=== PATIENT | female | born 1960 | race Caucasian/White ===

== ENCOUNTER → 2016-02-26 | Outpatient (CLI) | payer BC, OTHER ==
[~2016-02-26] MED LIST: GADOBUTROL 10 ML VIAL IVP ONE
--- NOTE | 2016-02-27 09:00 | MR ---
MRI Right Foot Without and With Contrast History: Diabetes with foot ulcer. Chronic ulcer fifth toe. History of prior surgery. Technique: MRI was performed of the right foot using a 3 Cristy MRI system. Sagittal, coronal, and axi al imaging was obtained with standard imaging sequences. Images were obtained pre- and post intraveno us contrast, 10 mL Gadavist. Findings: There is bone marrow edema and periosteal edema with enhancement in the proximal phalanx of the fifth toe and surrounding soft tissue edema and enhancement. This would suggest cellulitis and o steomyelitis of the proximal phalanx. No evidence for joint effusion at the fifth metatarsophalangeal joint. There is metal susceptibility artifact from hardware fixation at the base of the fifth metata rsal. There is old fracture with nonunion and degenerative change at the base of the second, third, a nd fourth metatarsals. Degenerative change is seen at the cuneiform metatarsal articulation with suba rticular sclerosis, cystic change, and osteophytosis. Mild degenerative change is also seen in the fi rst metatarsophalangeal joint with slight joint effusion. Impression: 1. Findings compatible with cellulitis and osteomyelitis of the proximal phalanx fifth toe. 2. 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 Evidence of prior fix ation of the fifth metatarsal. Results called to Dr. Kalyn Simeon on February 27, 2016 at 0855 hours.
== END ==
LOC: FIMAGING 15:22
PROVIDERS: ATTEND Internal Medicine Infectious Disease
DX: E11.621 Type 2 diabetes mellitus with foot ulcer (principal); M19.071 Primary osteoarthritis, right ankle and foot
CPT/HCPCS: A9585

== ENCOUNTER 2016-03-08 05:36 | Day surgery (SDC) | payer BC, OTHER ==
[2016-03-08] MEDS ORDERED: CEFAZOLIN 2 GM/DEXTROSE/100 ML BAG IV ONE (06:15)
--- NOTE | 2016-03-08 06:20 | CPEKG ---
Heart Rate: 88 RR Interval: 682 P-R Interval: 140 QRSD Interval: 86 QT Interval: 372 QTC Interval: 450 P Gilbert: 1 QRS Gilbert: -4 T Wave Gilbert: 32 EKG Severity - NORMAL ECG - EKG Impression: SINUS RHYTHM Electronically Signed By: Rusty Shah 08-Mar-2016 17:37:56
[2016-03-08] MEDS ORDERED: HYDROCORTISONE 100 MG/2 ML VIAL IV ONE (07:00)
[2016-03-08] MEDS ORDERED: ceFAZolin 2 GM/DEXTROSE 100 ML IV ONE (07:00)
[2016-03-08] MEDS ORDERED: BUPIVACAINE 0.5% 30 ML SDV ONE (07:00)
[2016-03-08] MEDS ORDERED: MIDAZOLAM 2 MG/2 ML VIAL ONE (07:11)
[2016-03-08] MEDS ORDERED: fentaNYL 100 MCG/2 ML INJ ONE (07:15)
[2016-03-08] MEDS ORDERED: PROPOFOL 200 MG/20 ML VIAL ONE (07:16)
[2016-03-08] MEDS ORDERED: VANCOMYCIN HCL/NORMAL SALINE 250 ML IV ONE (08:00)
[2016-03-08] MEDS ORDERED: DEXAMETHASONE 4 MG/ML VIAL ONE (08:01)
[2016-03-08] MEDS ORDERED: ONDANSETRON 4 MG/2 ML VIAL ONE (08:02)
[2016-03-08] MEDS ORDERED: ALBUTEROL 3 ML DEYVIAL ONE (08:40)
--- NOTE | 2016-03-08 09:23 | GOP ---
[f rep st] OPERATIVE REPORT DATE OF OPERATION: 03/08/2016 SURGEON: Clover Lopez MD TAILER IN: Adriana Chapa, IBETH ANESTHESIA: General. ANESTHESIOLOGIST: Terence Patton MD PREOPERATIVE DIAGNOSIS: Osteomyelitis, right 5th toe. POSTOPERATIVE DIAGNOSIS: Osteomyelitis, right 5th toe. PROCEDURE PERFORMED: Amputation, right 5th toe and metatarsal head. FINDINGS: No unusual findings. SPECIMENS: Microbiology and pathology. ESTIMATED BLOOD LOSS: 5 cc. INDICATIONS: The patient is a 55-year-old woman who developed a wound to the inside of her 5th toe. MRI was obtained, which showed osteomyelitis. DESCRIPTION OF PROCEDURE: The patient was brought into the operating room, placed supine on the tabl e, and general anesthesia was administered. Her right foot was prepped and draped in the usual steri le fashion. I infiltrated the area with 10 cc of 0.5% Marcaine. I made a circular incision around t he toe, and created this linearly down the lateral side of the foot. I dissected the subcutaneous ti ssues with electrocautery. I used a periosteal elevator to elevate the tissues away from the bone. I used the microsagittal saw to amputate the 5th toe; this was submitted to Pathology. I took a seco nd sample and submitted this to microbiology I continued my dissection to include the metatarsal head and, again, elevated the tissue and amputated the metatarsal head. The proximal area was inked purp le. Hemostasis was achieved. The deep layer was closed with 2-0 Vicryl. Skin closed with 2-0 nylon . Silver impregnated Mepilex dressing was applied. She was awakened in the operating room, extubate d, transferred to PACU in stable condition. /[id number]/MODL
[2016-03-08] MEDS ORDERED: SUMAtriptan 50 MG TAB PO ONE (12:30)
== END 2016-03-08 13:00 | disposition home or self-care (01) ==
LOC: FSGY 05:36
PROVIDERS: ATTEND Surgery
PROC: 0Y6M0ZF Detachment at Right Foot, Partial 5th Ray, Open Approach (ICD-10-PCS; principal; 2016-03-08 07:15)
DX: M86.171 Other acute osteomyelitis, right ankle and foot (principal); L97.501 Non-pressure chronic ulcer of other part of unspecified foot limited to breakdown of skin; L03.031 Cellulitis of right toe; E11.610 Type 2 diabetes mellitus with diabetic neuropathic arthropathy; J44.9 Chronic obstructive pulmonary disease, unspecified; I10 Essential (primary) hypertension; K21.9 Gastro-esophageal reflux disease without esophagitis; Z87.891 Personal history of nicotine dependence; Z86.73 Personal history of transient ischemic attack (TIA), and cerebral infarction without residual deficits
CPT/HCPCS: J0690; J1100; J2250; J2405; J2704; J3010

== ENCOUNTER 2016-03-11 16:26 | Inpatient (IN) | payer BC, OTHER ==
[2016-03-11] MEDS ORDERED: ACETAMINOPHEN 325 MG TAB PO PRN (16:29)
[2016-03-11] MEDS ORDERED: diphenhydrAMINE 25 MG CAP PO PRN (16:29)
[2016-03-11] MEDS ORDERED: ONDANSETRON 4 MG/2 ML VIAL IVP PRN (16:29)
[2016-03-11] MEDS ORDERED: ONDANSETRON DISINTEGRATING 4 MG TAB PO PRN (16:29)
[2016-03-11] MEDS ORDERED: D50W 25 GM/50 ML SYR IVP PRN ×2 (16:38→19:14)
--- NOTE | 2016-03-11 17:15 | GHP ---
[f rep st] HISTORY AND PHYSICAL DATE OF ADMISSION: 03/11/2016 REASON FOR ADMISSION: Right fifth toe amputation with cellulitis. HISTORY OF PRESENT ILLNESS: The patient is a 55-year-old woman who presented to our office with a chronic right fifth toe wound. She had an MRI which showed evidence of osteomyelitis of the proximal phalanx of the fifth toe. She was taken to the operating room by Dr. Lopez on 03/08/ for amputation of the right fifth toe and distal metatarsal. Pathology and microbiology are still pending. She presented to the office today with worsening redness, swelling and warmth at the site of the amputation. She denies any purulent drainage from the wound. She reports increased tenderness to palpation of the area. Her daughter reports that her temperature is 1 degree higher than her baseline and her oxygen saturations are about 88% on room air. She normally is about 90% on room air. The patient and her family are very concerned about worsening infection and desire treatment with IV antibiotic. PAST MEDICAL HISTORY: Type 2 diabetes, COPD on chronic immunosuppression, arthritis, GERD, hypertension, history of TIA. PAST SURGICAL HISTORY: Right fifth toe amputation, appendectomy, bilateral fifth metatarsal repair, hysterectomy, right knee surgery, tarsal tunnel release , left ulnar nerve relocation, cataract surgery. MEDICATIONS: Advair, Lyrica, metformin, morphine, oxycodone, prednisone, Prozac , triamterene and baby aspirin. ALLERGIES: Penicillin causes rash. SOCIAL HISTORY: She denies tobacco, alcohol or recreational drug use. She is a former smoker and quit 15 years ago. Her daughter is a SURVEILLANCE ANALYST and is her primary caregiver. FAMILY HISTORY: Mother with stroke, otherwise, noncontributory to wound. REVIEW OF SYSTEMS: Ten-point review of systems negative aside from the HPI. PHYSICAL EXAMINATION: GENERAL: Pleasant, well-developed, well-nourished woman in no acute distress, accompanied by daughter, cushingoid features. HEENT: Normocephalic, atraumatic. No hearing deficits. Pupils equal and round. No scleral icterus. Mucous membranes moist. NECK: Tracheal midline. LUNGS: No increased work of breathing. CARDIOVASCULAR: No peripheral edema. SKIN: Warm and dry. The right fifth toe incision is clean and dry. There is surrounding erythema to the midfoot. This was marked with a marking pen. The area is tender to palpation, is warm to the touch. No drainage from the surgical incision, no purulence. MUSCULOSKELETAL: Nonambulatory at this time, in wheelchair. PSYCH: Mood and affect normal. IMPRESSION AND PLAN: The patient is a 55-year-old woman who is status post right fifth toe amputation who presents with cellulitis. Given her comorbidities, we will admit to the hospital for IV antibiotics and observation. We will consult the hospitalist to evaluate for management of her comorbidities. Unlikely that she will need surgical revision at this time. We will continue to follow through her hospital stay. She will have a regular diet as we do not anticipate surgical intervention at this time. I have also notified her infectious disease doctor, Dr. Kalyn Simeon, of the admission and she recommends IV vancomycin. This will be dosed by pharmacy. The patient was additionally seen by Dr. Angelito Farley who agreed with the above impression and plan. Attending addendum - Patient seen and examined with PA. Agree with above. operative site has some cellulitis and is tender. Given above patient comorbidities will plan for admit , observation along with IM and ID consult. Anticipate that patient will resolve cellulitis with gentle elevation and IV antibiotics. /[id number]/MODL MTDD
[2016-03-11] MEDS: VANCOMYCIN 1.25 GM in D5W 250 ML IV SCH (18:35)
--- NOTE | 2016-03-11 20:45 | GCON ---
[f rep st] CONSULTATION MEDICINE CONSULTATION DATE OF CONSULTATION: 03/11/2016 CHIEF COMPLAINT: We were asked by the Surgery Service to consult on this patient who was admitted for right toe cellulitis after recent amputation with a history of a diabetes, COPD, hypertension, and chronic pain. HISTORY OF PRESENT ILLNESS: The patient is a 55-year-old female with history of [id number] type 2 diabetes, COPD, hypertension, and chronic pain, who was directly admitted to the hospital from her surgeon's outpatient clinic due to concern for right 5th toe postop cellulitis. She was previously managed for a chronic wound on her 5th toe and she underwent amputation of the right 5th toe after an MRI revealed evidence of osteomyelitis of the proximal phalanx. Her amputation was performed by Dr. Lopez on March 08. She returned to clinic today complaining of focal redness and swelling at the amputation site. She denies fevers or chills. She has had no purulent drainage. Her foot is somewhat tender, though she is able to bear weight. She denies chest pain, shortness of breath, abdominal pain, nausea, vomiting, diarrhea, or urinary symptoms. Due to concern for cellulitis, she was directly admitted to the hospital by her surgeon for IV antibiotics, ID consultation, and further management. PAST MEDICAL HISTORY: 1. Type 2 diabetes. 2. COPD. 3. Arthritis. 4. GERD. 5. Hypertension. 6. History of TIA. PAST SURGICAL HISTORY: 1. Right 5th toe amputation March 08, 2016. 2. History of appendectomy. 3. Bilateral 5th metatarsal repair. 4. Hysterectomy. 5. Right knee surgery. 6. Carpal tunnel release. 7. Left ulnar nerve relocation. 8. Cataract surgery. MEDICATIONS: Please see Diet TV for completed, updated outpatient medication list. ALLERGIES: Penicillin which causes a rash. FAMILY HISTORY: Her mother had a stroke. SOCIAL HISTORY: The patient lives independently. She is a former smoker. She denies current tobacco use, and also denies alcohol or drug use. Her daughter is her primary caregiver. REVIEW OF SYSTEMS: A 10-point review of systems was performed and was negative except as per HPI. OBJECTIVE: VITAL SIGNS: Temperature is 36.5, blood pressure 132/82, heart rate 74, respiratory rate 14, she is 91% on room air. GENERAL: The patient is awake, alert, oriented, in no acute distress. HEENT: Head is atraumatic, normocephalic. Pupils equal, round and reactive to light. Extraocular muscles are intact. Oropharynx is clear. Mucous membranes are moist. NECK: Supple. There is no JVD. HEART: Regular rate and rhythm without murmur. LUNGS: Clear auscultation bilaterally. ABDOMEN: Soft, nontender. Normoactive bowel tones. EXTREMITIES: Her right lower extremity has focal erythema extending from her 5th right toe amputation site proximally to the midfoot, and this is localized to the dorsal aspect of her right foot. Extremities are otherwise warm, well perfused. There is no lymphangitic streaking. NEUROLOGIC: Exam is grossly nonfocal. LABORATORY DATA: A CBC, basic metabolic panel are ordered and are pending. ASSESSMENT AND PLAN: The patient is a 55-year-old female with a history of hypertension, diabetes, and chronic obstructive pulmonary disease, who is admitted to the hospital for right foot cellulitis 4 days postoperative from amputation. 1. Right foot cellulitis s/p 5th toe amputation for osteomyelitis POD #3. This is primarily managed by her general surgery team. She is admitted to the hospital and started on IV vancomycin. I will go ahead and draw blood cultures and check a CBC and basic metabolic panel tonight. Infectious Disease has been consulted. 2. Type 2 diabetes. The patient takes metformin in the outpatient setting. Her blood sugar on arrival was 103 and her sugars have ranged from 70s to 90s over the past couple of months per chart review. While we are awaiting laboratory data, including her current renal function, we will hold her metformin for now and provide dose-adjusted insulin. 3. Hypertension. The patient was relatively normotensive on arrival. It does not look like she is currently taking an outpatient antihypertensive, though her medication reconciliation is not yet completed. Will need to recheck this in the morning. 4. Chronic obstructive pulmonary disease with chronic continuous steroid use. She has no evidence of acute exacerbation. Again, her medication reconciliation is not completed, but will plan to continue her outpatient inhalers as well as her current outpatient prednisone dose once her medication reconciliation is done. 5. Chronic pain. Will continue the patient's Lyrica and outpatient pain medications. 6. Deep venous thrombosis prophylaxis. Lovenox. CODE STATUS: The patient is full code. DISPOSITION: Inpatient. /[id number]/MODL MTDD
[2016-03-11 21:08] LABS: % IMMATURE GRANULYOCYTES 1.1 % (0.0-1.1); ADD DIFF? NO; ADD MORPH? NO; ADD SCAN? NO; ATYPICAL LYMPHOCYTE FLAG 0 (0-99); FRAGMENT RBC FLAG 0 (0-99); HEMATOCRIT 40.4 % (38.0-47.0); HEMOGLOBIN 13.3 g/dL (12.6-16.3); LEFT SHIFT FLG 40 (0-99); LIPEMIA HEMOLYSIS FLAG 80 (0-99); MEAN CELL HEMOGLOBIN 29.6 pg (27.9-34.1); MEAN CELL HEMOGLOBIN CONCENTR. 32.9 g/dL (32.4-36.7); MEAN CELL VOLUME 89.8 fL (81.5-99.8); MEAN PLATELET VOLUME 10.3 fL (8.7-11.7); PLATELET CLUMPS FLAG 0 (0-99); PLATELET COUNT 253 10^3/uL (150-400); RED CELL DISTRIBUTION WIDTH 13.9 % (11.5-15.2)
[2016-03-11 21:16] LABS: ANION GAP 12 mEq/L (8-16); CALCIUM 9.2 mg/dL (8.5-10.4); CARBON DIOXIDE 27 mEq/l (22-31); CHLORIDE 95 mEq/L (97-110); CREATININE 0.6 mg/dL (0.6-1.0); GLOMERULAR FILTRATION RATE > 60; GLUCOSE 275 mg/dL (70-100); POTASSIUM 4.6 mEq/L (3.5-5.2); SODIUM 134 mEq/L (134-144)
[2016-03-11] MEDS: morphINE SR 60 MG TAB PO SCH (22:31)
[2016-03-11] MEDS: PREGABALIN 75 MG CAP PO SCH (22:33)
[2016-03-11] MEDS: ALBUTEROL 60 PUFFS/8 GM MDI IH SCH (23:47)
[2016-03-12] MEDS: FLUoxetine 20 MG CAP PO SCH ×2 (01:04→22:25)
[2016-03-12] MEDS: INSULIN LISPRO 100 UNIT/ML SC SCH ×5 (01:07→22:24)
[2016-03-12 05:42] LABS: % IMMATURE GRANULYOCYTES 1.6 % (0.0-1.1); ABSOLUTE IMMATURE GRANULOCYTES 0.15 10^3/uL (0.00-0.10); ADD DIFF? NO; ADD MORPH? NO; ADD SCAN? NO; ATYPICAL LYMPHOCYTE FLAG 0 (0-99); FRAGMENT RBC FLAG 0 (0-99); HEMATOCRIT 43.5 % (38.0-47.0); HEMOGLOBIN 13.9 g/dL (12.6-16.3); LEFT SHIFT FLG 20 (0-99); LIPEMIA HEMOLYSIS FLAG 80 (0-99); MEAN CELL HEMOGLOBIN 28.8 pg (27.9-34.1); MEAN CELL VOLUME 90.1 fL (81.5-99.8); MEAN PLATELET VOLUME 10.2 fL (8.7-11.7); PLATELET CLUMPS FLAG 0 (0-99); PLATELET COUNT 256 10^3/uL (150-400); RED BLOOD CELL COUNT 4.83 10^6/uL (4.18-5.33); RED CELL DISTRIBUTION WIDTH 14.2 % (11.5-15.2)
[2016-03-12 06:17] LABS: ANION GAP 13 mEq/L (8-16); CALCIUM 9.4 mg/dL (8.5-10.4); CARBON DIOXIDE 22 mEq/l (22-31); CHLORIDE 103 mEq/L (97-110); CREATININE 0.6 mg/dL (0.6-1.0); GLOMERULAR FILTRATION RATE > 60; GLUCOSE 143 mg/dL (70-100); POTASSIUM 4.5 mEq/L (3.5-5.2); SODIUM 138 mEq/L (134-144)
[2016-03-12] MEDS: VANCOMYCIN 1.25 GM in D5W 250 ML IV SCH ×2 (06:31→18:30)
[2016-03-12] MEDS ORDERED: INSULIN LISPRO 100 UNIT/ML SC SCH (08:00)
[2016-03-12] MEDS: ENOXAPARIN 40 MG/0.4 ML SYR SC SCH (08:21)
[2016-03-12] MEDS: PREGABALIN 75 MG CAP PO SCH ×2 (08:22→22:25)
[2016-03-12] MEDS: ASPIRIN EC 81 MG TAB PO SCH (08:22)
[2016-03-12] MEDS: TRIAMTERENE/HCTZ 37.5/25 1 EACH TAB PO SCH (08:22)
[2016-03-12] MEDS: morphINE SR 60 MG TAB PO SCH ×2 (08:25→22:25)
--- NOTE | 2016-03-12 08:45 | SOAPPROG ---
SOAP Progress Note Assessment/Plan: Assessment: 55yo F POD#4 s/p R 5th toe amputation for chronic wound and osteomyelitis Path pending Erythema improved after 1 dose of vanco IV vancomycin. ID to see Appreciate hospitalist management of comorbidities WBAT S: feeling well. no complaints O: laying in bed, comfortable, NAD No increased WOB No peripheral edema R 5th toe amputation site CDI, some swelling associated with likely underlying hematoma. Erythema receded from marked line (marked yesterday). Nontender to palpation Objective: Vital Signs Temp Pulse Resp BP Pulse Ox 36.7 C 71 18 113/68 2 L 03/12/16 07:34 03/12/16 07:34 03/12/16 07:34 03/12/16 08:22 03/12/16 07:34 Laboratory Results 03/12/16 05:35 03/12/16 05:35
[2016-03-12] MEDS: FLUTICASONE/SALMETER 500/50MCG DISKUS IH SCH ×2 (08:46→22:12)
[2016-03-12] MEDS: ALBUTEROL 60 PUFFS/8 GM MDI IH SCH ×2 (08:50→22:11)
[2016-03-12] MEDS ORDERED: SALMETEROL IH SCH (09:00)
[2016-03-12] MEDS ORDERED: FLUTICASONE IH SCH (09:00)
[2016-03-12] MEDS ORDERED: SUMAtriptan 50 MG TAB PO ONE (13:13)
--- NOTE | 2016-03-12 13:22 | PCMIDPN ---
Assessment/Plan: #Cellulitis s/p R 5th toe amp 03/08/2015. Remote h/o + cx for enterococcus from wound cx on this toe only S to vancomycin. Doubt this is the pathogen associated with cellulitis. Cultures from amputation are only showing mixed cutaneous darlene. --continue vancomycin another day, consider transition to PO Keflex/doxy tomorrow --adjusted dose of vancomycin 1.25gm IV q12 okay Microbiology 03/11 blood cultures (2): Pending OR cultures as above Subjective: feeling well, no f/c, no pain (due to neuropathy) Objective: Vital Signs Temp Pulse Resp BP Pulse Ox 36.7 C 80 18 113/68 91 L 03/12/16 07:34 03/12/16 08:51 03/12/16 08:51 03/12/16 08:22 03/12/16 08:51 Laboratory Results 03/12/16 05:35 03/12/16 05:35 - Physical Exam General Appearance: alert, no apparent distress, other (Cushanoid) Respiratory: No accessory muscle use Extremities: erythema (Surgical site with sutures that are scabbed w/ dry blood. Erythema noted ronaldo-wound, still w/i margins of markings w/ recession. Mild swelling lateral side of R foot, no fluctuance ) Skin: No rash Neuro/Psych: alert, normal mood/affect, oriented x 3 - Time Spent With Patient Time Spent with Patient: greater than 25 minutes Time Spent with Patient: Greater than 25 minutes spent on this patients care, greater than 50% of time spent counseling, educating, and coordinating care regarding the above mentioned plan. ICD10 Worksheet Patient Problems: Problems Problem Status Diagnosed Osteomyelitis Acute
[2016-03-12] MEDS: predniSONE 20 MG TAB PO SCH (13:42)
--- NOTE | 2016-03-12 14:47 | WOCRNPDOC ---
WOCRN Advanced Assessment Note - Skin Integrity Problem, Advanced Assess Right Fifth Toe Surgical Wound/Incision Dressing Type: Gauze Dressing Description: Intact Closure Description: Sutures Exudate Amount: Scant Exudate Color: Brown Exudate Characteristic(s): Bloody, Dried Integumentary Issue Intervention: Dressing Changed Ronaldo Wound Tissue: Erythema (marked by physician), Swollen Ronaldo Wound Swelling: Mild Wound Bed Color: Brown Wound Bed Constitution: Scab Site Odor: None Site Measurement - Head-to-Toe Length X Width X Depth (cm): [id number] Skin Integrity Problem Comment: Surgical wound/amputation site w/ intact sutures noted. Site is presently scabbed w/ dry, bloody exudate. Erythema noted ronaldo-wound, still w/in margins of markings and receding. Mild swelling noted across lateral side of R foot, no fluctuance palpated. Orders written for dressing to protect site and keep it dry.
[2016-03-12] MEDS: NYSTATIN POWDER 15 GM BTL TP SCH ×2 (16:36→22:48)
--- NOTE | 2016-03-12 16:44 | HOSPPROG ---
Hospitalist Progress Note Assessment/Plan: # Acute osteomyelitis- status post amputation- postoperative day 4. MRI foot( personally reviewed and interpreted) shows osteomyelitis - continue IV antibiotics - surgery following # acute right foot cellulitis- clinically markedly improved - continue current antibiotics # diabetes mellitus- blood sugars 142-307- - continue sliding scale insulin # COPD- clinically stable oxygen saturations 90% on room air - continue home meds # prophylaxis Lovenox # diet diabetic # disposition greater than 2 midnights as requiring IV antibiotics and pain medications for postoperative care I have discussed the case with nursing we will encourage ambulation Subjective: no pain at surgical site Objective: Vital Signs Temp Pulse Resp BP Pulse Ox 36.9 C 81 20 107/69 96 03/12/16 16:00 03/12/16 16:00 03/12/16 16:00 03/12/16 16:00 03/12/16 16:00 Laboratory Results 03/12/16 05:35 03/12/16 05:35 - Physical Exam Constitutional: chronically ill appearing Eyes: anicteric sclera Ears, Nose, Mouth, Throat: moist mucous membranes Cardiovascular: regular rate and rhythym Respiratory: no respiratory distress, No expiratory wheeze Gastrointestinal: normoactive bowel sounds, soft, non-tender abdomen Genitourinary: no bladder fullness Skin: warm Musculoskeletal: No asymmetric calves Neurologic: AAOx3 Psychiatric: interacting appropriately, not anxious Lymph, Heme, Immunologic: no cervical LAD ICD10 Worksheet Patient Problems: Problems Problem Status Diagnosed Osteomyelitis Acute - ICD10 Problem Qualifiers (1) Osteomyelitis
[2016-03-12] MEDS: SUMAtriptan 50 MG TAB PO PRN (16:48)
[2016-03-12] MEDS ORDERED: VANCOMYCIN 1.5 GM in D5W 250 ML IV SCH (19:00)
[2016-03-12] MEDS ORDERED: FLUOXETINE HCL 80 MG PO SCH (21:00)
[2016-03-13] MEDS: VANCOMYCIN 1.25 GM in D5W 250 ML IV SCH ×2 (06:38→19:11)
[2016-03-13] MEDS: INSULIN LISPRO 100 UNIT/ML SC SCH ×4 (07:38→22:24)
--- NOTE | 2016-03-13 08:57 | PCMIDPN ---
Assessment/Plan: #Cellulitis s/p R 5th toe amp 03/08/2015. Remote h/o + cx for enterococcus from wound cx on this toe only S to vancomycin. Doubt this is the pathogen associated with cellulitis. Cultures from amputation are only showing mixed cutaneous darlene. slow clinical improvement with erythema still immediately surrounding incision with associated tenderness, surgical team queries if underlying hematoma --continue vancomycin 1.25gm IV q12, check trough and labs at 1800 today --another day of IV antibiotics, likely DC --elevate RLE Microbiology 03/11 blood cultures (2): No growth OR cultures as above Subjective: Patient notes some pain on her lateral right foot. No diarrhea. Did not sleep well last night Objective: Vital Signs Temp Pulse Resp BP Pulse Ox 36.9 C 76 14 113/75 96 03/13/16 07:30 03/13/16 07:30 03/13/16 07:30 03/13/16 07:30 03/13/16 07:30 Laboratory Results 03/12/16 05:35 03/12/16 05:35 - Physical Exam General Appearance: alert, no apparent distress, other (Cushanoid) Respiratory: No accessory muscle use Extremities: erythema (Surgical site with sutures that are scabbed w/ dry blood. Erythema noted primarily ronaldo-wound, further recession compared to yesterday. Mild swelling around wound, no fluctuance), No pedal edema Peripheral Pulses: 1+: dorsalis-pedis (R), dorsalis-pedis (L) Skin: No rash Neuro/Psych: alert, normal mood/affect, oriented x 3 - Line/s PIV Lines: other (R forearm), No drainage, No erythema ICD10 Worksheet Patient Problems: Problems Problem Status Diagnosed Osteomyelitis Acute
[2016-03-13] MEDS: ASPIRIN EC 81 MG TAB PO SCH (09:27)
[2016-03-13] MEDS: TRIAMTERENE/HCTZ 37.5/25 1 EACH TAB PO SCH (09:27)
[2016-03-13] MEDS: morphINE SR 60 MG TAB PO SCH ×2 (09:27→22:23)
[2016-03-13] MEDS: ENOXAPARIN 40 MG/0.4 ML SYR SC SCH (09:27)
[2016-03-13] MEDS: PREGABALIN 75 MG CAP PO SCH ×2 (09:27→22:23)
--- NOTE | 2016-03-13 10:10 | SOAPPROG ---
SOAP Progress Note Assessment/Plan: Assessment: 55yo F POD#5 s/p R 5th toe amputation for chronic wound and osteomyelitis Path pending Erythema significantly improved IV vancomycin. Another day per ID Appreciate hospitalist management of comorbidities WBAT S: feeling well. no complaints this morning. walked yesterday O: laying in bed, comfortable, NAD No increased WOB No peripheral edema R 5th toe amputation site CDI, minimal swelling. Tender around surgical incision. Erythema limited to around incision site Objective: Vital Signs Temp Pulse Resp BP Pulse Ox 36.9 C 76 14 113/75 96 03/13/16 07:30 03/13/16 07:30 03/13/16 07:30 03/13/16 09:27 03/13/16 07:30 Laboratory Results 03/12/16 05:35 03/12/16 05:35 03/12/16 03/13/16 03/14/16 05:59 05:59 05:59 Intake Total 250 Balance 250 ICD10 Worksheet Patient Problems: Problems Problem Status Diagnosed Osteomyelitis Acute
[2016-03-13] MEDS: ALBUTEROL 60 PUFFS/8 GM MDI IH SCH ×2 (10:19→21:57)
[2016-03-13] MEDS: FLUTICASONE/SALMETER 500/50MCG DISKUS IH SCH ×2 (10:20→21:59)
[2016-03-13] MEDS: NYSTATIN POWDER 15 GM BTL TP SCH ×4 (11:25→22:39)
--- NOTE | 2016-03-13 13:43 | HOSPPROG ---
Hospitalist Progress Note Assessment/Plan: # Acute osteomyelitis- status post amputation- postoperative day 5 MRI foot (personally reviewed and interpreted) showed osteomyelitis- BCX - NGTD - continue IV antibiotics - surgery following # acute right foot cellulitis- clinically improved - continue current antibiotics # diabetes mellitus- blood sugars 83-281- taking normal p.o. - continue sliding scale insulin - can resume metformin as an outpatient # COPD- clinically stable oxygen saturations 91% on room air - continue home meds - on chronic prednisone # prophylaxis Lovenox # diet diabetic # disposition greater than 2 midnights as requiring IV antibiotics and pain medications for postoperative care I have discussed the case with infectious disease will continue with 1 additional day of IV antibiotics Subjective: and did not rest well - appetite is normal Objective: Vital Signs Temp Pulse Resp BP Pulse Ox 36.9 C 76 14 113/75 96 03/13/16 07:30 03/13/16 07:30 03/13/16 07:30 03/13/16 09:27 03/13/16 07:30 Laboratory Results 03/12/16 05:35 03/12/16 05:35 03/12/16 03/13/16 03/14/16 05:59 05:59 05:59 Intake Total 250 Balance 250 - Physical Exam Constitutional: obese Eyes: anicteric sclera Ears, Nose, Mouth, Throat: moist mucous membranes Cardiovascular: regular rate and rhythym Respiratory: no rales or rhonchi, expiratory wheeze Gastrointestinal: normoactive bowel sounds, soft, non-tender abdomen Genitourinary: no bladder fullness Skin: warm, normal color, other ( erythema around wound improved) Musculoskeletal: No asymmetric calves Neurologic: AAOx3 Psychiatric: interacting appropriately, not anxious Lymph, Heme, Immunologic: no cervical LAD ICD10 Worksheet Patient Problems: Problems Problem Status Diagnosed Osteomyelitis Acute - ICD10 Problem Qualifiers (1) Osteomyelitis
[2016-03-13] MEDS: predniSONE 20 MG TAB PO SCH (13:57)
[2016-03-13 18:49] LABS: ALANINE AMINOTRANSFERASE 58 IU/L (9-52); ALBUMIN 3.7 g/dL (3.5-5.0); ALKALINE PHOSPHATASE 91 IU/L (38-126); ANION GAP 11 mEq/L (8-16); ASPARTATE AMINOTRANSFERASE 37 IU/L (14-46); BILIRUBIN,TOTAL 0.5 mg/dL (0.1-1.4); C-REACTIVE PROTEIN 12.5 mg/L (<10.0); CALCIUM 9.8 mg/dL (8.5-10.4); CARBON DIOXIDE 31 mEq/l (22-31); CHLORIDE 96 mEq/L (97-110); CREATININE 0.6 mg/dL (0.6-1.0); GLOMERULAR FILTRATION RATE > 60; GLUCOSE 171 mg/dL (70-100); POTASSIUM 4.1 mEq/L (3.5-5.2); SODIUM 138 mEq/L (134-144); TOTAL PROTEIN 6.2 g/dL (6.3-8.2)
[2016-03-13] MEDS: FLUoxetine 20 MG CAP PO SCH (22:23)
[2016-03-14] MEDS: VANCOMYCIN 1.25 GM in D5W 250 ML IV SCH (06:20)
[2016-03-14 07:54] VITALS: BP 135/81; TEMP 98.4
[2016-03-14] MEDS: TRIAMTERENE/HCTZ 37.5/25 1 EACH TAB PO SCH (08:49)
[2016-03-14] MEDS: ASPIRIN EC 81 MG TAB PO SCH (08:49)
[2016-03-14] MEDS: ENOXAPARIN 40 MG/0.4 ML SYR SC SCH (08:49)
[2016-03-14] MEDS: PREGABALIN 75 MG CAP PO SCH (08:50)
[2016-03-14] MEDS: morphINE SR 60 MG TAB PO SCH (08:50)
[2016-03-14] MEDS: NYSTATIN POWDER 15 GM BTL TP SCH ×2 (08:51→15:29)
[2016-03-14] MEDS: INSULIN LISPRO 100 UNIT/ML SC SCH ×2 (09:38→12:41)
--- NOTE | 2016-03-14 10:02 | PCMIDPN ---
Assessment/Plan: #Cellulitis s/p R 5th toe amp 03/08/2015. Remote h/o + cx for enterococcus from wound cx on this toe only S to vancomycin. Doubt this is the pathogen associated with cellulitis. Cultures from amputation still show no specific pathogen. Significant improvement in erythema, some ciara erythema laterally remains. --dc vancomycin --dc okay from ID standpoint --Rx Keflex 500mg TID, doxycycline 100mg PO BID, I sent Rx to Florinda at [facility] and they will bring to her in hospital room Microbiology 03/11 blood cultures (2): No growth OR cultures as above vanco T 15, creatinine 0.6 Subjective: Patient feeling well, no complaints Objective: Vital Signs Temp Pulse Resp BP Pulse Ox 36.9 C 72 16 135/81 H 94 03/14/16 07:50 03/14/16 07:50 03/14/16 07:50 03/14/16 07:50 03/14/16 07:50 Laboratory Results 03/12/16 05:35 03/13/16 18:25 03/13/16 03/14/16 03/15/16 05:59 05:59 05:59 Intake Total 250 Balance 250 C-Reactive Protein 12.5 mg/L (<10.0) H 03/13/16 18:25 - Physical Exam General Appearance: alert, no apparent distress, obese, other (Cushanoid) EENT: No scleral icterus Respiratory: No accessory muscle use Extremities: erythema (Faint ciara erythema surrounding surgical incision on right lateral foot, sutures in place, crusted with blood. No fluctuance) Skin: No rash Neuro/Psych: alert, normal mood/affect, oriented x 3 - Time Spent With Patient Time Spent with Patient: greater than 25 minutes (Coordination of care with surgery and discharge medicine) Time Spent with Patient: Greater than 25 minutes spent on this patients care, greater than 50% of time spent counseling, educating, and coordinating care regarding the above mentioned plan. ICD10 Worksheet Patient Problems: Problems Problem Status Diagnosed Osteomyelitis Acute
[2016-03-14] MEDS: FLUTICASONE/SALMETER 500/50MCG DISKUS IH SCH (10:12)
[2016-03-14] MEDS: ALBUTEROL 60 PUFFS/8 GM MDI IH SCH (10:12)
[2016-03-14 10:21] VITALS: PULSE 80; RESP 18; O2SAT 92
[2016-03-14] MEDS: SUMAtriptan 50 MG TAB PO PRN (11:28)
--- NOTE | 2016-03-14 12:07 | SOAPPROG ---
SOAP Progress Note Assessment/Plan: Assessment: 55 yo s/p amputation right fifth toe and and metarsal head Admitted for mild cellulitus Continue abx per ID F/U with dr. Lopez or lizzie on 03/21 or 03/22 May shower Light dressing over wound otherwise S: ready to go home O: Mild erythema by sutures Plan: 03/14/16 12:06 03/14/16 12:26 Objective: Vital Signs Temp Pulse Resp BP Pulse Ox 36.9 C 80 18 135/81 H 92 03/14/16 07:50 03/14/16 10:13 03/14/16 10:13 03/14/16 07:50 03/14/16 10:13 Laboratory Results 03/12/16 05:35 03/13/16 18:25 03/13/16 03/14/16 03/15/16 05:59 05:59 05:59 Intake Total 250 Balance 250 ICD10 Worksheet Patient Problems: Problems Problem Status Diagnosed Osteomyelitis Acute
[2016-03-14] MEDS: predniSONE 20 MG TAB PO SCH (13:26)
[2016-03-14] MEDS ORDERED: CEPHALEXIN 500 MG CAP PO SCH (16:00)
[2016-03-14] MEDS ORDERED: DOXYCYCLINE HYCLATE 100 MG CAP/TAB PO SCH (21:00)
== END 2016-03-14 16:58 | disposition home or self-care (01) | DRG 863 ==
LOC: F3N 17:08 → F3E 17:18 → OBSVTOIN 19:36
PROVIDERS: ADMIT Surgery; ATTEND Surgery
DX: T81.4XXA Infection following a procedure, initial encounter (principal); L03.115 Cellulitis of right lower limb; E11.9 Type 2 diabetes mellitus without complications; J44.9 Chronic obstructive pulmonary disease, unspecified; K21.9 Gastro-esophageal reflux disease without esophagitis; I10 Essential (primary) hypertension; Z86.73 Personal history of transient ischemic attack (TIA), and cerebral infarction without residual deficits; Z89.421 Acquired absence of other right toe(s); M19.90 Unspecified osteoarthritis, unspecified site; G89.29 Other chronic pain; Z79.51 Long term (current) use of inhaled steroids; Z79.52 Long term (current) use of systemic steroids
CPT/HCPCS: J1650; J1815; J3370

== ENCOUNTER 2017-05-12 02:37 | Observation (INO) | payer BC, OTHER ==
[2017-05-12] MEDS ORDERED: NS 1,000 ML IV ONE (02:42)
--- NOTE | 2017-05-12 02:46 | EDPHY ---
H & P Time Seen by Provider: 05/12/17 02:45 HPI/ROS: HPI CHIEF COMPLAINT: Shortness of breath, cough, joint pain, muscle aches, flu- like illness HISTORY OF PRESENT ILLNESS: This patient very pleasant 56-year-old female extensive medical history which includes COPD, obstructive sleep apnea, hypertension, diabetes, coronary artery disease, migraines, asthma, GERD, chronic pain, recent right ankle fracture in a splint, who presents emergency room with fever, muscle aches and joint pain, flu-like illness, cough. She denies any chest pain. Denies abdominal pain. Denies urinary symptoms. Does state mild shortness of breath. T-max at [facility] was 102.6. She did receive Tylenol prior to arrival. She does complain of generalized weakness and fatigue as well. Past Medical History: COPD 2L night, MICHAEL, obesity, coronary disease, migraines, asthma, GERD, chronic pain, diabetes, hypertension Past Surgical History: Multiple previous surgeries including hysterectomy, appendectomy, tonsillectomy Social History: Resides at [facility]. Family History: Noncontributory ROS REVIEW OF SYSTEMS: A comprehensive 10 point review of systems is otherwise negative aside from elements mentioned in the history of present illness. Exam Constitutional appears nontoxic, triage nursing summary reviewed, vital signs reviewed, awake/alert. Eyes normal conjunctivae and sclera, EOMI, PERRLA. HENT normal inspection, atraumatic, moist mucus membranes, no epistaxis, neck supple/ no meningismus, no raccoon eyes. Respiratory decreased breath sounds bilaterally, wheezing on the right lung field, no appreciable wheezing on the left lung field Cardiovascular rate normal, regular rhythm, no murmur, no edema, distal pulses normal. Gastrointestinal soft, non-tender, no rebound, no guarding, normal bowel sounds, no distension, no pulsatile mass. Genitourinary no CVA tenderness. Musculoskeletal no midline vertebral tenderness, full range of motion, no calf swelling, no tenderness of extremities, no meningismus, good pulses, neurovascularly intact. Skin pink, warm, & dry, no rash, skin atraumatic. Neurologic awake, alert and oriented x 3, AAOx3, moves all 4 extremities equally, motor intact, sensory intact, CN II-XII intact, normal cerebellar, normal vision, normal speech. Psychiatric normal mood/affect. Heme/Lymph/Immune no lymphadenopathy. Differential Diagnosis: Includes but is not limited to in a particular order pneumonia, viral syndrome, upper respiratory tract infection, influenza, dehydration, electrolyte abnormality, sepsis, bacteremia, pulmonary embolism Medical Decision Making: Plan for this patient IV establishment with blood cultures, lactic acid, check influenza, chest x-ray to rule pneumonia, gentle IV hydration, check blood work , electrolytes, and re-evaluate. Re-evaluation: EKG interpretation by me on record in [employer] system. Impression time of EKG 4:14 a.m., sinus tachycardia rate of [address] elevation no ST depression no significant T-wave abnormalities. 0441: Patient's blood work reviewed. This patient has a positive D-dimer over 4. In the setting of hypoxia, shortness of breath, and a recent right ankle injury in a splint will need to proceed with CT angiogram of the chest to rule out pulmonary embolism. Blood work has been reviewed. Positive D-dimer. Negative troponin. She did receive a DuoNeb breathing treatment this feeling slightly better. 0642AM: CT angiogram of the chest reviewed no evidence of pulmonary embolism. There is bilateral atelectasis present. Due to the patient's hypoxia, wheezing on exam she will be admitted to the hospital for further pulmonary care. She received a DuoNeb breathing treatment here in the emergency room. Additionally I have ordered her 60 mg prednisone. Additionally IV Levaquin for possible COPD exacerbation. Her CT scan did not show evidence of significant PE. Or significant pneumonia. Unclear exactly what caused her fever at [facility] of 102.6 blood cultures have been sent. Plan for this patient should be admitted to the hospital for shortness of breath and wheezing. Hypoxia. 0709AM: Spoke with the patient again. Patient is doing much better than arrival to the emergency room. I discussed about being discharged going home however when we discussed this at length she does not want to go home. She wants to be admitted to the hospital. I will touch base back with the hospitalist service for admission. 0711: Spoke with Dr. Nelson agrees to admit the patient. I did explain that the patient does not feel comfortable going back to [facility]. I did encourage her to go back to [facility]. However she feels more comfortable being admitted. She is currently getting IV Levaquin. Received 60 mg prednisone. Source: Patient, EMS - Medical/Surgical History Hx Asthma: No Hx Chronic Respiratory Disease: No Hx Diabetes: Yes Hx Cardiac Disease: No Hx Renal Disease: No Hx Cirrhosis: No Hx Alcoholism: No Hx HIV/AIDS: No Hx Splenectomy or Spleen Trauma: No Other PMH: htn, dm 2, copd - Social History Smoking Status: Former smoker Constitutional: Initial Vital Signs Temperature (C) 37 C 05/12/17 02:40 Heart Rate 110 H 05/12/17 02:40 Respiratory Rate 20 05/12/17 02:40 Blood Pressure 135/95 H 05/12/17 02:40 O2 Sat (%) 94 05/12/17 02:40 O2 Delivery Mode Room Air O2 (L/minute) 2 Allergies/Adverse Reactions: Penicillins Allergy (Verified 03/14/16 15:37) Anaphylaxis Home Medications: Medication Instructions Recorded Albuterol [Proventil Inhaler HFA 2 puffs IH BID 03/07/16 (*)] Aspirin EC [Aspirin EC 81 mg (*)] 81 mg PO DAILY 03/07/16 FLUTICASONE/SALMETEROL [ADVAIR HFA 2 puffs IH BID 03/07/16 230-21 MCG INHALER] Fluoxetine HCl [Prozac 40 mg] 80 mg PO HS 03/07/16 Metformin HCl [Metformin 1000 mg] 1,000 mg PO BID 03/07/16 Morphine Sulfate [Morphine Sulfate 60 mg PO BID 03/07/16 ER] Pregabalin [Lyrica 75mg (*)] 75 mg PO BID 03/07/16 Triamterene/Hydrochlorothiazid 1 tab PO DAILY 03/07/16 [Triamterene-Hctz 37.5-25 mg Tb] oxyCODONE IR [Oxycodone Ir (*)] 30 mg PO Q6 PRN 03/07/16 predniSONE 20 mg PO DAILY@14 03/07/16 SUMAtriptan [Imitrex 50 MG (*)] 50 mg PO Q2H PRN MDD 100 mg 03/12/16 Cephalexin [Keflex (*)] 500 mg PO TID #0 cap 03/14/16 Doxycycline Hyclate [Vibramycin 100 mg PO BID #0 capsule 03/14/16 100 MG (*)] Medical Decision Making - Data Points Laboratory Results: Laboratory Results 05/12/17 02:50 05/12/17 02:50 03/05/12/17 05/12/17 02:50 02:50 02:50 WBC RBC Hgb Hct MCV MCH MCHC RDW Plt Count MPV Neut % (Auto) Lymph % (Auto) [place] % (Auto) Eos % (Auto) Baso % (Auto) Nucleat RBC Rel Count Absolute Neuts (auto) Absolute Lymphs (auto) Absolute Monos (auto) Absolute Eos (auto) Absolute Basos (auto) Absolute Nucleated RBC Immature Gran % Immature Gran # PT INR APTT D-Dimer Sodium Potassium Chloride Carbon Dioxide Anion Gap BUN Creatinine Estimated GFR Glucose Calcium Magnesium Total Bilirubin Conjugated Bilirubin Unconjugated Bilirubin AST ALT Alkaline Phosphatase Creatine Kinase CK-MB (CK-2) Fraction Troponin I NT-Pro-B Natriuret Pep 216 pg/mL H pg/mL (0-125) Total Protein Albumin Lipase Urine Color Pending Urine Appearance Pending Urine pH Pending Ur Specific [place] Pending Urine Protein Pending Urine Ketones Pending Urine Blood Pending Urine Nitrate Pending Urine Bilirubin Pending Urine Urobilinogen Pending Ur Leukocyte Esterase Pending Urine Glucose Pending Nasal Influenza A PCR NEGATIVE FOR FLU A (NEGATIVE) Nasal Influenza B PCR NEGATIVE FOR FLU B (NEGATIVE) 05/12/17 05/12/17 05/12/17 02:50 02:50 02:50 WBC 10.64 10^3/uL H 10^3/uL (3.80-9.50) RBC 4.63 10^6/uL 10^6/uL (4.18-5.33) Hgb 10.7 g/dL L g/dL (12.6-16.3) Hct 36.7 % L % (38.0-47.0) MCV 79.3 fL L fL (81.5-99.8) MCH 23.1 pg L pg (27.9-34.1) MCHC 29.2 g/dL L g/dL (32.4-36.7) RDW 18.3 % H % (11.5-15.2) Plt Count 447 10^3/uL H 10^3/uL (150-400) MPV 9.8 fL fL (8.7-11.7) Neut % (Auto) 63.0 % % (39.3-74.2) Lymph % (Auto) 16.4 % % (15.0-45.0) [place] % (Auto) 12.0 % % (4.5-13.0) Eos % (Auto) 7.3 % % (0.6-7.6) Baso % (Auto) 0.5 % % (0.3-1.7) Nucleat RBC Rel Count 0.3 % H % (0.0-0.2) Absolute Neuts (auto) 6.71 10^3/uL H 10^3/uL (1.70-6.50) Absolute Lymphs (auto) 1.74 10^3/uL 10^3/uL (1.00-3.00) Absolute Monos (auto) 1.28 10^3/uL H 10^3/uL (0.30-0.80) Absolute Eos (auto) 0.78 10^3/uL H 10^3/uL (0.03-0.40) Absolute Basos (auto) 0.05 10^3/uL 10^3/uL (0.02-0.10) Absolute Nucleated RBC 0.03 10^3/uL H 10^3/uL (0-0.01) Immature Gran % 0.8 % % (0.0-1.1) Immature Gran # 0.08 10^3/uL 10^3/uL (0.00-0.10) PT 13.8 SEC SEC (12.0-15.0) INR 1.04 (0.83-1.16) APTT 27.5 SEC SEC (23.0-38.0) D-Dimer 4.04 ug/mLFEU H ug/mLFEU (0.00-0.50) Sodium 141 mEq/L mEq/L (135-145) Potassium 3.7 mEq/L mEq/L (3.5-5.2) Chloride 97 mEq/L mEq/L (97-110) Carbon Dioxide 32 mEq/l H mEq/l (22-31) Anion Gap 12 mEq/L mEq/L (8-16) BUN 26 mg/dL H mg/dL (7-23) Creatinine 0.7 mg/dL mg/dL (0.6-1.0) Estimated GFR > 60 Glucose 140 mg/dL H mg/dL (70-100) Calcium 8.3 mg/dL L mg/dL (8.5-10.4) Magnesium 1.4 mg/dL L mg/dL (1.6-2.3) Total Bilirubin 0.8 mg/dL mg/dL (0.1-1.4) Conjugated Bilirubin 0.4 mg/dL mg/dL (0.0-0.5) Unconjugated Bilirubin 0.4 mg/dL mg/dL (0.0-1.1) AST 27 IU/L IU/L (14-46) ALT 44 IU/L IU/L (9-52) Alkaline Phosphatase 99 IU/L IU/L (38-126) Creatine Kinase 39 IU/L IU/L (0-156) CK-MB (CK-2) Fraction 0.61 ng/mL ng/mL (0.00-3.19) Troponin I < 0.012 ng/mL ng/mL (0.000-0.034) NT-Pro-B Natriuret Pep 217 pg/mL H pg/mL (0-125) Total Protein 5.5 g/dL L g/dL (6.3-8.2) Albumin 3.1 g/dL L g/dL (3.5-5.0) Lipase 47 IU/L IU/L (23-300) Urine Color Urine Appearance Urine pH Ur Specific [place]ila Urine Protein Urine Ketones Urine Blood Urine Nitrate Urine Bilirubin Urine Urobilinogen Ur Leukocyte Esterase Urine Glucose Nasal Influenza A PCR Nasal Influenza B PCR Medications Given: Levofloxacin/Dextrose (Levaquin 750 Mg (Premix)) 150 mls @ 100 mls/hr IV EDNOW ONE PRN Reason: Protocol Stop: 05/12/17 08:09 Last Admin: 05/12/17 06:49 Dose: 150 mls Discontinued Medications Albuterol/Ipratropium (Duoneb) 3 ml IH EDNOW ONE Stop: 05/12/17 02:48 Last Admin: 05/12/17 02:52 Dose: 3 ml Hydromorphone HCl (Dilaudid) 0.5 mg IVP EDNOW ONE Stop: 05/12/17 04:45 Last Admin: 05/12/17 05:28 Dose: 0.5 mg Sodium Chloride (Ns) 1,000 mls @ 0 mls/hr IV EDNOW ONE; Wide Open PRN Reason: Protocol Stop: 05/12/17 02:43 Last Admin: 05/12/17 02:47 Dose: 1,000 mls Magnesium Sulfate (Magnesium Sulf 2 Gm (Premix)) 50 mls @ 50 mls/hr IV EDNOW ONE Stop: 05/12/17 05:01 Last Admin: 05/12/17 04:20 Dose: 50 mls Prednisone (Prednisone) 60 mg PO EDNOW ONE Stop: 05/12/17 06:41 Last Admin: 05/12/17 06:48 Dose: 60 mg Departure - Departure Disposition: [facility] In[facility] Acute Clinical Impression: Bronchitis, COPD exacerbation COPD (chronic obstructive pulmonary disease) Qualifiers: COPD type: unspecified COPD Qualified Code(s): J44.9 - Chronic obstructive pulmonary disease, unspecified Condition: Fair
[2017-05-12] MEDS ORDERED: IPRATROPIUM/ALBUTEROL 3 ML DEYVIAL IH ONE (02:47)
[2017-05-12 03:13] LABS: PLATELET COUNT 447 10^3/uL (150-400)
[2017-05-12 03:22] LABS: INR 1.04 (0.83-1.16); PROTIME(PATIENT) 13.8 SEC (12.0-15.0)
[2017-05-12 03:24] LABS: CREATINE KINASE 39 IU/L (0-156)
[2017-05-12] MEDS ORDERED: MAGNESIUM SULF 2 GM/WATER 50 ML IV ONE (04:02)
[2017-05-12] MEDS ORDERED: IOPAMIDOL (ISOVUE 370) 100 ML BTL IV ONE (04:05)
[2017-05-12] MEDS ORDERED: HYDROmorphONE/DILAUDID 2 MG/ML INJ IVP ONE (04:44)
[2017-05-12] MEDS ORDERED: predniSONE 20 MG TAB PO ONE (06:40)
[2017-05-12] MEDS ORDERED: ALBUTEROL 3 ML DEYVIAL IH PRN (06:41)
[2017-05-12] MEDS ORDERED: ONDANSETRON DISINTEGRATING 4 MG TAB PO PRN (06:41)
[2017-05-12] MEDS ORDERED: ONDANSETRON 4 MG/2 ML VIAL IVP PRN (06:41)
[2017-05-12] MEDS ORDERED: ACETAMINOPHEN 325 MG TAB PO PRN (06:41)
--- NOTE | 2017-05-12 07:06 | PDGENHP ---
History and Physical - Chief Complaint Fever - History of Present Illness 56 yo F w/ COPD, morbid obesity, DM, and chronic pain presents from [facility] with reported fever. Patient is complaining only of fatigue and "not feeling like myself". She recently broke her R ankle and has this in a partial cast. She denies any increased pain to the R ankle. She also denies shortness of breath or chest pain. She is currently on her baseline 2 L/min O2 satting in the mid 90's. She has been afebrile while here. CTPE without clear abnormality ; there is a question of possible, small peripheral PE but doubt this is clinically significant if present. History Information - Allergies/Home Medication List Allergies/Adverse Reactions: Penicillins Allergy (Verified 03/14/16 15:37) Anaphylaxis Home Medications: Albuterol [Proventil Inhaler HFA (*)] 2 puffs IH BID 03/07/16 [Last Taken 07:00] Aspirin EC [Aspirin EC 81 mg (*)] 81 mg PO DAILY 03/07/16 [Last Taken 03/11/16 07:00] FLUTICASONE/SALMETEROL [ADVAIR HFA 230-21 MCG INHALER] 2 puffs IH BID 03/07/16 [ Last Taken 03/11/16 07:00] Fluoxetine HCl [Prozac 40 mg] 80 mg PO HS 03/07/16 [Last Taken 03/10/16 21:00] Metformin HCl [Metformin 1000 mg] 1,000 mg PO BID 03/07/16 [Last Taken 03/11/16 07:00] Morphine Sulfate [Morphine Sulfate ER] 60 mg PO BID 03/07/16 [Last Taken 07:00] Pregabalin [Lyrica 75mg (*)] 75 mg PO BID 03/07/16 [Last Taken 03/11/16 07:00] Triamterene/Hydrochlorothiazid [Triamterene-Hctz 37.5-25 mg Tb] 1 tab PO DAILY 03/07/16 [Last Taken 03/11/16 07:00] oxyCODONE IR [Oxycodone Ir (*)] 30 mg PO Q6 PRN 03/07/16 [Last Taken 03/11/16 16 :00] predniSONE 20 mg PO DAILY@14 03/07/16 [Last Taken 03/11/16 14:30] SUMAtriptan [Imitrex 50 MG (*)] 50 mg PO Q2H PRN MDD 100 mg 03/12/16 [Last Taken Unknown] I have personally reviewed and updated: family history, medical history - Past Medical History COPD, diabetes type 2 Additional medical history: Chronic pain. Morbid obesity - Surgical History Additional surgical history: R ankle surgery for recent fx - Family History Positive for: cancer - Social History Smoking Status: Former smoker Review of Systems Review of Systems: ROS: 10pt was reviewed & negative except for what was stated in HPI & below Physical Exam Physical Exam: Temp Pulse Resp BP Pulse Ox 37 C 94 16 136/95 H 100 05/12/17 02:40 05/12/17 06:00 05/12/17 06:00 05/12/17 06:00 05/12/17 06:00 Constitutional: no apparent distress, obese, other (Cushingoid appearance) Eyes: PERRL, EOMI Ears, Nose, Mouth, Throat: moist mucous membranes, no oral mucosal ulcers Cardiovascular: regular rate and rhythym, no murmur, rub, or gallop Respiratory: no respiratory distress, clear to auscultation Gastrointestinal: normoactive bowel sounds, soft, non-tender abdomen Skin: warm, normal color Musculoskeletal: full muscle strength, other (R foot in partial cast, wrapped) Neurologic: AAOx3, CN II-XII Intact Psychiatric: interacting appropriately, not anxious Lab Data & Imaging Review 05/12/17 02:50 05/12/17 02:50 WBC 10.64 10^3/uL (3.80-9.50) H 05/12/17 02:50 RBC 4.63 10^6/uL (4.18-5.33) 05/12/17 02:50 Hgb 10.7 g/dL (12.6-16.3) L 05/12/17 02:50 Hct 36.7 % (38.0-47.0) L 05/12/17 02:50 MCV 79.3 fL (81.5-99.8) L 05/12/17 02:50 MCH 23.1 pg (27.9-34.1) L 05/12/17 02:50 MCHC 29.2 g/dL (32.4-36.7) L 05/12/17 02:50 RDW 18.3 % (11.5-15.2) H 05/12/17 02:50 Plt Count 447 10^3/uL (150-400) H 05/12/17 02:50 MPV 9.8 fL (8.7-11.7) 05/12/17 02:50 Neut % (Auto) 63.0 % (39.3-74.2) 05/12/17 02:50 Lymph % (Auto) 16.4 % (15.0-45.0) 05/12/17 02:50 [place] % (Auto) 12.0 % (4.5-13.0) 05/12/17 02:50 Eos % (Auto) 7.3 % (0.6-7.6) 05/12/17 02:50 Baso % (Auto) 0.5 % (0.3-1.7) 05/12/17 02:50 Nucleat RBC Rel Count 0.3 % (0.0-0.2) H 05/12/17 02:50 Absolute Neuts (auto) 6.71 10^3/uL (1.70-6.50) H 05/12/17 02:50 Absolute Lymphs (auto) 1.74 10^3/uL (1.00-3.00) 05/12/17 02:50 Absolute Monos (auto) 1.28 10^3/uL (0.30-0.80) H 05/12/17 02:50 Absolute Eos (auto) 0.78 10^3/uL (0.03-0.40) H 05/12/17 02:50 Absolute Basos (auto) 0.05 10^3/uL (0.02-0.10) 05/12/17 02:50 Absolute Nucleated RBC 0.03 10^3/uL (0-0.01) H 05/12/17 02:50 Immature Gran % 0.8 % (0.0-1.1) 05/12/17 02:50 Immature Gran # 0.08 10^3/uL (0.00-0.10) 05/12/17 02:50 PT 13.8 SEC (12.0-15.0) 05/12/17 02:50 INR 1.04 (0.83-1.16) 05/12/17 02:50 APTT 27.5 SEC (23.0-38.0) 05/12/17 02:50 D-Dimer 4.04 ug/mLFEU (0.00-0.50) H 05/12/17 02:50 Sodium 141 mEq/L (135-145) 05/12/17 02:50 Potassium 3.7 mEq/L (3.5-5.2) 05/12/17 02:50 Chloride 97 mEq/L (97-110) 05/12/17 02:50 Carbon Dioxide 32 mEq/l (22-31) H 05/12/17 02:50 Anion Gap 12 mEq/L (8-16) 05/12/17 02:50 BUN 26 mg/dL (7-23) H 05/12/17 02:50 Creatinine 0.7 mg/dL (0.6-1.0) 05/12/17 02:50 Estimated GFR > 60 05/12/17 02:50 Glucose 140 mg/dL (70-100) H 05/12/17 02:50 Calcium 8.3 mg/dL (8.5-10.4) L 05/12/17 02:50 Magnesium 1.4 mg/dL (1.6-2.3) L 05/12/17 02:50 Total Bilirubin 0.8 mg/dL (0.1-1.4) 05/12/17 02:50 Conjugated Bilirubin 0.4 mg/dL (0.0-0.5) 05/12/17 02:50 Unconjugated Bilirubin 0.4 mg/dL (0.0-1.1) 05/12/17 02:50 AST 27 IU/L (14-46) 05/12/17 02:50 ALT 44 IU/L (9-52) 05/12/17 02:50 Alkaline Phosphatase 99 IU/L (38-126) 05/12/17 02:50 Creatine Kinase 39 IU/L (0-156) 05/12/17 02:50 CK-MB (CK-2) Fraction 0.61 ng/mL (0.00-3.19) 05/12/17 02:50 Troponin I < 0.012 ng/mL (0.000-0.034) 03/19/18 02:50 NT-Pro-B Natriuret Pep 216 pg/mL (0-125) H 05/12/17 02:50 Total Protein 5.5 g/dL (6.3-8.2) L 05/12/17 02:50 Albumin 3.1 g/dL (3.5-5.0) L 05/12/17 02:50 Lipase 47 IU/L (23-300) 05/12/17 02:50 Nasal Influenza A PCR NEGATIVE FOR FLU A (NEGATIVE) 05/12/17 02:50 Nasal Influenza B PCR NEGATIVE FOR FLU B (NEGATIVE) 05/12/17 02:50 Imaging Review: CTPE (Prelim): No central PE with possible small volume clot in pertferal LT mid lung, Vascular opacification is fairly good Cardiomegaly Atelectasis bilateral Suspect hepatic steatosis Called to ER @ 0615 hrs Assessment & Plan Assessment: 56 yo F w/ morbid obesity, COPD, DM, and chronic pain presents with fever. Plan: 1. Fever - Unclear etiology; she has been afebrile while here. She has been mildly tachycardic but this is her only SIRS criteria (1/4). She has no clear localizing symptoms but generalized fatigue may be suggestive of viral illness. CTPE negative for pneumonia. Patient is refusing to be discharged back to [facility]. - Blood cultures, respiratory PCR, procalcitonin - S/p levofloxacin in ED, will observe off of further antibiotics 2. COPD - Some mild wheezing reported in ED on arrival, she is clear to auscultation on my exam now w/ O2 sats in the mid 90's on baseline 2 L/min. - Continue home inhalers - Albuterol PRN - She received prednisone in the ED for possible COPD exacerbation, but I am not certain this is necessary. I will not order for now and she can be observed throughout the day. 3. DM - Will order SSI for blood sugar management while inpatient. 4. Morbid obesity - BMI 40 5. Chronic pain - Takes multiple medications as outpatient, need med reconciliation. Diet - Regular Code - Full Ppx - LMWH Dispo - Admit under observation status
[2017-05-12] MEDS ORDERED: OXYCODONE/APAP 5/325 TAB PO ONE (08:12)
[2017-05-12] MEDS ORDERED: ENOXAPARIN 40 MG/0.4 ML SYR SC SCH (09:00)
--- NOTE | 2017-05-12 09:23 | CPEKG ---
Heart Rate: 101 RR Interval: 594 P-R Interval: 152 QRSD Interval: 82 QT Interval: 324 QTC Interval: 420 P [place]: 4 QRS [place]: 0 T Wave [place]: 24 EKG Severity - OTHERWISE NORMAL ECG - EKG Impression: SINUS TACHYCARDIA Electronically Signed By: Morteza Underwood 12-May-2017 21:33:54
[2017-05-12] MEDS: INSULIN LISPRO 100 UNIT/ML SC SCH ×3 (10:56→17:59)
--- NOTE | 2017-05-12 12:38 | ASMTCMCOM ---
CM Note CM Note Notes: Chart reviewed. Met with patient who reports she normally lives in [place] with her , daughter and grandson. She has been at [facility] for 2 weeks for fracture of right tibia. She was admitted via ED with fevers. Workup pending. Disposition likely back to [facility]. Will place referral in allscripts. CM to follow. Date Signed: 05/12/2017 12:37 PM Electronically Signed By:Rin Mccracken RN
[2017-05-12] MEDS ORDERED: IPRATROPIUM/ALBUTEROL 3 ML DEYVIAL IH PRN (13:44)
[2017-05-12] MEDS ORDERED: LISINOPRIL 10 MG TAB PO PRN (13:44)
[2017-05-12] MEDS ORDERED: SUMAtriptan 50 MG TAB PO PRN (13:44)
[2017-05-12] MEDS ORDERED: MELATONIN 3 MG TAB PO PRN (13:44)
[2017-05-12] MEDS ORDERED: ALBUTEROL 60 PUFFS/8 GM MDI IH PRN (13:44)
[2017-05-12] MEDS: Fluticasone/Salmeterol [Advair Hfa 230-21 Mcg Inhaler] 2 PUFFS IH SCH ×2 (14:40→20:51)
[2017-05-12] MEDS: ASPIRIN EC 81 MG TAB PO SCH (14:58)
[2017-05-12] MEDS: PREGABALIN 75 MG CAP PO SCH ×2 (14:58→20:49)
--- NOTE | 2017-05-12 16:00 | HOSPPROG ---
Hospitalist Progress Note Assessment/Plan: patient seen, without resp complaints or CP noted is cast on RLE and recent orthopedic surgery. CT scan shows equivocal very small clot burden 1. b/l LE u/s now 2. no anticoag if u/s neg 3. [facility] neg Objective: Vital Signs Temp Pulse Resp BP Pulse Ox 36.6 C 90 14 132/74 H 93 05/12/17 11:38 05/12/17 11:38 05/12/17 11:38 05/12/17 11:38 05/12/17 11:38 05/11/17 05/12/17 05/13/17 05:59 05:59 05:59 Intake Total 1000 Output Total 600 Balance 400 PT 13.8 SEC (12.0-15.0) 05/12/17 02:50 INR 1.04 (0.83-1.16) 05/12/17 02:50 ICD10 Worksheet Patient Problems: Problems Problem Status Onset Bronchitis Acute COPD (chronic obstructive pulmonary disease) Acute COPD exacerbation Acute Osteomyelitis Acute
--- NOTE | 2017-05-12 16:31 | ASMTLACE ---
LACE Length of stay for Answers: Less than 1 day current admission Comorbidities - select Answers: Chronic pulmonary disease all that apply # of Emergency department Answers: 1-2 visits in the last 6 months Score: 3 Date Signed: 05/12/2017 04:31 PM Electronically Signed By:Rin Mccracken RN
--- NOTE | 2017-05-12 16:52 | ASMTCMCOM ---
CM Note CM Note Notes: Patient has been medically cleared for discharge back to [facility]. Call to Mari at [facility] to request transportation. She called back to state patient will need therapiy evals for reauthorization. Notified MD. Discharge cancelled and therapy evals ordered. CM to follow. Date Signed: 05/12/2017 04:51 PM Electronically Signed By:Rin Mccracken RN
[2017-05-12] MEDS: predniSONE 10 MG TAB PO SCH (17:59)
[2017-05-12] MEDS ORDERED: metFORMIN HCL 500 MG TAB PO SCH (18:00)
[2017-05-12] MEDS: CYCLOBENZAPRINE 10 MG TAB PO PRN (18:03)
--- NOTE | 2017-05-12 19:58 | GDS ---
[f rep st] DISCHARGE SUMMARY DISCHARGE DIAGNOSES: 1. Likely viral syndrome. 2. Chronic pain on continuous narcotics. 3. Recent fibular fracture. 4. Diabetes. 5. Morbid obesity. 6. Chronic obstructive pulmonary disease. Please see admission history and physical by Dr. Chacho Nelson. The patient presented with fever and not feeling like herself and fatigued. She is in a partial cast on her right ankle. She had a CT PE showing equivocal minimal clot burden in the small part of her lung, that being of the left mid lung. Notably, she did not have respiratory complaints, nor did she have an oxygen requirement despite her diagnosis of COPD. The patient had ultrasound of her legs performed. The results are pending at this time. If negative , she will be discharge back to [facility] where she is recuperating from her ankle surgery. If the results are positive, she will be staying the hospital overnight, and initiate systemic anticoagulati on. /[id number]/MODL
[2017-05-12] MEDS: oxyCODONE CR 30 MG TAB PO SCH (20:49)
[2017-05-12] MEDS: FAMOTIDINE 20 MG TAB PO SCH (20:49)
[2017-05-12] MEDS: DULoxetine 30 MG CAP PO SCH (20:49)
[2017-05-13] MEDS: CYCLOBENZAPRINE 10 MG TAB PO PRN ×2 (02:57→18:11)
--- NOTE | 2017-05-13 08:07 | HOSPPROG ---
Hospitalist Progress Note Assessment/Plan: Patient is a 56-year-old female who presented from [facility] with complaints of fever. She is not feeling like herself. She recently broke her ankle and this is in a partial cast. She was discharged yesterday but the discharge was canceled due to needing further evaluation by PT and OT. Today is my 1st encounter with the patient. Chart reviewed. 56 yo F w/ morbid obesity, COPD, DM, and chronic pain presents with fever. * Fever -blood cultures are pending, procalcitonin is 0.84 and respiratory PCR shows no organism detected -she is feeling much better today *COPD - Albuterol PRN -CTA negative for PE * DM - Will order SSI for blood sugar management while inpatient. * Morbid obesity - BMI 40 * Chronic pain -home regimen cont *Plan: dc after PT and OT see her Subjective: Lesvia is feeling better today, cont to be weak. Objective: Vital Signs Temp Pulse Resp BP Pulse Ox 36.9 C 89 16 107/53 L 93 05/13/17 02:56 05/13/17 02:56 05/13/17 02:56 05/13/17 02:56 05/13/17 02:56 05/12/17 05/13/17 05/14/17 05:59 05:59 05:59 Intake Total 2000 Output Total 1750 Balance 250 PT 13.8 SEC (12.0-15.0) 05/12/17 02:50 INR 1.04 (0.83-1.16) 05/12/17 02:50 - Physical Exam Constitutional: not in pain, obese Eyes: PERRL Ears, Nose, Mouth, Throat: hearing normal Cardiovascular: regular rate and rhythym Respiratory: no respiratory distress, reduced air movement Skin: warm Musculoskeletal: generalized weakness Neurologic: AAOx3 Psychiatric: interacting appropriately ICD10 Worksheet Patient Problems: Problems Problem Status Onset Osteomyelitis Acute Bronchitis Acute COPD (chronic obstructive pulmonary disease) Acute COPD exacerbation Acute
--- NOTE | 2017-05-13 08:34 | PDIAF ---
- Diagnosis Diagnosis: fevers Code Status: Full Code - Medication Management Discharge Medications: Medications to Continue on Transfer Albuterol [Proventil Inhaler HFA (*)] 2 puffs IH Q6HRS PRN 03/07/16 [Last Taken 03/11/16 07:00] Aspirin EC [Aspirin EC 81 mg (*)] 81 mg PO DAILY 03/07/16 [Last Taken 03/11/16 07:00] FLUTICASONE/SALMETEROL [ADVAIR HFA 230-21 MCG INHALER] 2 puffs IH BID 03/07/16 [ Last Taken 03/11/16 07:00] Pregabalin [Lyrica 75mg (*)] 75 mg PO BID 03/07/16 [Last Taken 03/11/16 07:00] Triamterene/Hydrochlorothiazid [Triamterene-Hctz 37.5-25 mg Tb] 1 tab PO DAILY 03/07/16 [Last Taken 03/11/16 07:00] oxyCODONE IR [Oxycodone Ir (*)] 30 mg PO Q4HRS PRN 03/07/16 [Last Taken 16:00] SUMAtriptan [Imitrex 50 MG (*)] 100 mg PO DAILY PRN 03/12/16 [Last Taken Unknown ] Cyclobenzaprine [Flexeril 10 MG (*)] 10 mg PO TID PRN 05/12/17 [Last Taken Unknown] DULoxetine [Cymbalta 30 MG (*)] 90 mg PO HS 05/12/17 [Last Taken Unknown] Ipratropium/Albuterol [Duoneb (*)] 3 ml IH Q6HRS PRN 05/12/17 [Last Taken Unknown] Lisinopril [Zestril 10 mg (*)] 10 mg PO DAILY PRN 05/12/17 [Last Taken Unknown] Melatonin [Melatonin 3 MG (*)] 3 mg PO HS PRN 05/12/17 [Last Taken Unknown] Multivitamins [Multivitamin (*)] 1 each PO DAILY 05/12/17 [Last Taken Unknown] Nystatin Powder [Mycostatin Powder] 1 jed TP DAILY 05/12/17 [Last Taken Unknown] Ranitidine HCl [Zantac] 300 mg PO BID 05/12/17 [Last Taken Unknown] oxyCODONE HCL [Oxycontin] 60 mg PO BID 05/12/17 [Last Taken Unknown] predniSONE [Prednisone] 10 mg PO DAILY18 05/12/17 [Last Taken Unknown] Discharge Medications: Refer to the Discharge Home Medication list for PRN reason. - Orders Services needed: Physical Therapy, Occupational Therapy Diet Recommendation: ADA 2000 consistent carb Diet Texture: Regular Texture Diet Additional: HOLD METFORMIN UNTIL TOMORROW EVENING DOSE, ON 05/14/17, SHE USUSALLY TAKES METFORMIN 500 MG BID - Follow Up Care Current Providers and Referrals: NONE *PRIMARY CARE P,. [Primary Care Provider] - As per Instructions
[2017-05-13] MEDS: MULTIVITAMINS 1 EACH TAB PO SCH (08:55)
[2017-05-13] MEDS: PREGABALIN 75 MG CAP PO SCH ×2 (08:55→20:20)
[2017-05-13] MEDS: FAMOTIDINE 20 MG TAB PO SCH ×2 (08:55→20:21)
[2017-05-13] MEDS: ASPIRIN EC 81 MG TAB PO SCH (08:55)
[2017-05-13] MEDS: ENOXAPARIN 40 MG/0.4 ML SYR SC SCH (08:56)
[2017-05-13] MEDS: TRIAMTERENE/HCTZ 37.5/25 1 EACH TAB PO SCH (08:57)
[2017-05-13] MEDS: oxyCODONE CR 30 MG TAB PO SCH ×2 (08:57→20:20)
[2017-05-13] MEDS: INSULIN LISPRO 100 UNIT/ML SC SCH ×3 (09:02→18:13)
[2017-05-13] MEDS: Fluticasone/Salmeterol [Advair Hfa 230-21 Mcg Inhaler] 2 PUFFS IH SCH ×2 (10:54→20:25)
--- NOTE | 2017-05-13 14:51 | GDS ---
[f rep st] DISCHARGE SUMMARY DISCHARGE DIAGNOSIS: 1. Likely upper respiratory viral infection with resolution of her fevers. 2. Chronic obstructive pulmonary disease. 3. Diabetes. 4. Morbid obesity. 5. Chronic pain. BRIEF HISTORY: Briefly, the patient is a 56-year-old female who presented from [facility] with complaints of fever. She was not feeling like herself. She recently broke her ankle and this is in a partial cast. The plan was for her to be discharged yesterday but she needed further evaluation by PT and OT. She will be discharged today. Please see Dr. Purdy's discharge summary on 2017. DISCHARGE CONDITION: Stable. Blood pressure is 131/73, heart rate is 89, respiratory rate is 16, O2 saturation on 2 L are 93%, temperature 36.9 Celsius. MEDICATIONS AT DISCHARGE: Please see the EMR. DISCHARGE INSTRUCTIONS: 1. To hold her metformin for another day and a half. She received contrast during her stay. 2. To further follow up with her primary care provider. 3. If she develops fever, chills, chest pain, or shortness of breath, return to the ER. /[id number]/MODL MTDD
[2017-05-13] MEDS: predniSONE 10 MG TAB PO SCH (18:11)
[2017-05-13] MEDS: NYSTATIN POWDER 15 GM BTL TP SCH (18:14)
[2017-05-13] MEDS: DULoxetine 30 MG CAP PO SCH (20:20)
[2017-05-14] MEDS ORDERED: metFORMIN HCL 500 MG TAB PO SCH (08:00)
[2017-05-14] MEDS: ENOXAPARIN 40 MG/0.4 ML SYR SC SCH (08:52)
[2017-05-14] MEDS: oxyCODONE CR 30 MG TAB PO SCH (08:53)
[2017-05-14] MEDS: MULTIVITAMINS 1 EACH TAB PO SCH (08:53)
[2017-05-14] MEDS: FAMOTIDINE 20 MG TAB PO SCH (08:53)
[2017-05-14] MEDS: TRIAMTERENE/HCTZ 37.5/25 1 EACH TAB PO SCH (08:53)
[2017-05-14] MEDS: ASPIRIN EC 81 MG TAB PO SCH (08:53)
[2017-05-14] MEDS: PREGABALIN 75 MG CAP PO SCH (08:53)
--- NOTE | 2017-05-14 08:54 | HOSPPROG ---
Hospitalist Progress Note Assessment/Plan: Patient is a 56-year-old female who presented from [facility] with complaints of fever. She is not feeling like herself. She recently broke her ankle and this is in a partial cast. She was discharged yesterday but the discharge was canceled due to needing further evaluation by PT and OT. 56 yo F w/ morbid obesity, COPD, DM, and chronic pain presents with fever. * Fever -blood cultures show no growth, procalcitonin is 0.84 and respiratory PCR shows no organism detected *recent ankle surgery -has underlying Charcot foot -therapies recommending SNF *COPD - Albuterol PRN -CTA negative for PE * DM - Will order SSI for blood sugar management while inpatient. * Morbid obesity - BMI 40 * Chronic pain -home regimen cont *Plan: hopefully dc to rehab today Subjective: Lesvia is hopeful to go to rehab today, has no complaints. Objective: Vital Signs Temp Pulse Resp BP Pulse Ox 36.7 C 90 16 143/75 H 93 05/14/17 03:22 05/14/17 03:22 05/14/17 03:22 05/14/17 03:22 05/14/17 03:22 05/13/17 05/14/17 05/15/17 05:59 05:59 05:59 Intake Total 2000 1100 Output Total 1750 900 Balance 250 200 PT 13.8 SEC (12.0-15.0) 05/12/17 02:50 INR 1.04 (0.83-1.16) 05/12/17 02:50 - Physical Exam Constitutional: chronically ill appearing, obese Eyes: PERRL Ears, Nose, Mouth, Throat: hearing normal Cardiovascular: regular rate and rhythym Respiratory: no respiratory distress, reduced air movement Musculoskeletal: generalized weakness Neurologic: AAOx3 Psychiatric: interacting appropriately ICD10 Worksheet Patient Problems: Problems Problem Status Onset Bronchitis Acute COPD (chronic obstructive pulmonary disease) Acute COPD exacerbation Acute Osteomyelitis Acute
[2017-05-14] MEDS: NYSTATIN POWDER 15 GM BTL TP SCH (08:56)
[2017-05-14] MEDS ORDERED: FLUTICASONE/SALMETER 500/50MCG DISKUS IH SCH (09:00)
[2017-05-14] MEDS: INSULIN LISPRO 100 UNIT/ML SC SCH (09:28)
--- NOTE | 2017-05-14 10:50 | PDIAF ---
- Diagnosis Diagnosis: fevers Code Status: Full Code - Medication Management Discharge Medications: Medications to Continue on Transfer Albuterol [Proventil Inhaler HFA (*)] 2 puffs IH Q6HRS PRN 03/07/16 [Last Taken 03/11/16 07:00] Aspirin EC [Aspirin EC 81 mg (*)] 81 mg PO DAILY 03/07/16 [Last Taken 03/11/16 07:00] FLUTICASONE/SALMETEROL [ADVAIR HFA 230-21 MCG INHALER] 2 puffs IH BID 03/07/16 [ Last Taken 03/11/16 07:00] Pregabalin [Lyrica 75mg (*)] 75 mg PO BID 03/07/16 [Last Taken 03/11/16 07:00] Triamterene/Hydrochlorothiazid [Triamterene-Hctz 37.5-25 mg Tb] 1 tab PO DAILY 03/07/16 [Last Taken 03/11/16 07:00] oxyCODONE IR [Oxycodone Ir (*)] 30 mg PO Q4HRS PRN 03/07/16 [Last Taken 16:00] SUMAtriptan [Imitrex 50 MG (*)] 100 mg PO DAILY PRN 03/12/16 [Last Taken Unknown ] Cyclobenzaprine [Flexeril 10 MG (*)] 10 mg PO TID PRN 05/12/17 [Last Taken Unknown] DULoxetine [Cymbalta 30 MG (*)] 90 mg PO HS 05/12/17 [Last Taken Unknown] Ipratropium/Albuterol [Duoneb (*)] 3 ml IH Q6HRS PRN 05/12/17 [Last Taken Unknown] Lisinopril [Zestril 10 mg (*)] 10 mg PO DAILY PRN 05/12/17 [Last Taken Unknown] Melatonin [Melatonin 3 MG (*)] 3 mg PO HS PRN 05/12/17 [Last Taken Unknown] Multivitamins [Multivitamin (*)] 1 each PO DAILY 05/12/17 [Last Taken Unknown] Nystatin Powder [Mycostatin Powder] 1 jed TP DAILY 05/12/17 [Last Taken Unknown] Ranitidine HCl [Zantac] 300 mg PO BID 03/19/18 [Last Taken Unknown] oxyCODONE HCL [Oxycontin] 60 mg PO BID 05/12/17 [Last Taken Unknown] predniSONE [Prednisone] 10 mg PO DAILY18 05/12/17 [Last Taken Unknown] metFORMIN HCL [Metformin HCl] 500 mg PO BID #60 tablet 05/14/17 [Last Taken Unknown] Discharge Medications: Refer to the Discharge Home Medication list for PRN reason. - Orders Services needed: Physical Therapy, Occupational Therapy Diet Recommendation: ADA 2000 consistent carb Diet Texture: Regular Texture Diet - Labs/Radiology BMP Date: 05/16/17 - Follow Up Care Current Providers and Referrals: NONE *PRIMARY CARE P,. [Primary Care Provider] - As per Instructions
--- NOTE | 2017-05-14 10:59 | ASMTCMCOM ---
CM Note CM Note Notes: Pt's BC insurance has given auth. She is ready for DC. Noon pickup with Bran Barker arranged by [facility] . Final orders faxed. Date Signed: 05/14/2017 10:58 AM Electronically Signed By:Светлана Younger LCSW
[2017-05-14 11:47] VITALS: RESP 18
--- NOTE | 2017-05-14 12:11 | ASMTCMCOM ---
CM Note CM Note Notes: Sent PT/OT notes to [facility] per their request this morning. Waited all day for them to receive insurance authorization. [facility] could not admit patient today because they did not receive authorization from insurance. I attempted to call [facility] as well and was never connected to a person who could help me. Patient is rightfully upset. geographic information systems engineer and hospitalist notified. Date Signed: 05/13/2017 04:53 PM Electronically Signed By:María Stevenson RN
[2017-05-14 14:41] VITALS: BP 133/104; PULSE 128; TEMP 98.1; O2SAT 97
--- NOTE | 2017-05-14 15:45 | ASDISCHSUM ---
Discharge Information Plan Status: Medically Cleared to Leave: Discharge Date:05/14/2017 12:32 PM CM D/C Disposition: ADT D/C Disposition:Fdc Facility Projected Discharge Date:05/14/2017 11:00 AM Transportation at D/C: Discharge Delay Reason: Follow-Up Date:05/14/2017 11:00 AM Discharge Slot: Final Diagnosis: Placement Information Referral Type:*Long-Term/SNF Referral ID:[id number] Provider Name:[facility] [place] Address 1:[address] Address 2: City:[place] Selection Factors: State:[place] Patient Contact Information Contact Name:ION Relationship: Address:[address] [facility] Work Phone: [facility] Phone: State/Zip Code:[place] [address] Email: Financial Information Financial Class:HMO and PPO Plans Primary Plan Desc: OUT OF STATE PPO Primary Plan Number:[id number] Secondary Plan Desc:MEDICARE OUTPATIENT Secondary Plan Number:[id number] Assessment Information LACE LACE Length of stay for Answers: Less than 1 day current admission Comorbidities - select Answers: Chronic pulmonary disease all that apply # of Emergency department Answers: 1-2 visits in the last 6 months Score: 3 Date Signed: 05/12/2017 04:31 PM Electronically Signed By:Rin Mccracken RN [facility] CM Progress Note CM Note CM Note Notes: Chart reviewed. Met with patient who reports she normally lives in [place] with her , daughter and grandson. She has been at [facility] for 2 weeks for fracture of right tibia. She was admitted via ED with fevers. Workup pending. Disposition likely back to [facility]. Will place referral in allscripts. CM to follow. Date Signed: 05/12/2017 12:37 PM Electronically Signed By:Rin Mccracken RN [facility] CM Progress Note CM Note CM Note Notes: Patient has been medically cleared for discharge back to [facility]. Call to Mari at [facility] to request transportation. She called back to state patient will need therapiy evals for reauthorization. Notified MD. Discharge cancelled and therapy evals ordered. CM to follow. Date Signed: 05/12/2017 04:51 PM Electronically Signed By:Rin Mccracken RN [facility] Progress Note CM Note CM Note Notes: Sent PT/OT notes to [facility] per their request this morning. Waited all day for them to receive insurance authorization. [facility] could not admit patient today because they did not receive authorization from insurance. I attempted to call [facility] as well and was never connected to a person who could help me. Patient is rightfully upset. loading shovel oiler and hospitalist notified. Date Signed: 05/13/2017 04:53 PM Electronically Signed By:María Stevenson RN [facility] CM Progress Note CM Note CM Note Notes: Pt's BC insurance has given auth. She is ready for DC. Noon pickup with Bran Barker arranged by [facility] . Final orders faxed. Date Signed: 05/14/2017 10:58 AM Electronically Signed By:Светлана Younger LCSW Intervention Information
== END 2017-05-14 12:32 ==
LOC: EDUNIT# → F1N 08:40
PROVIDERS: ADMIT Student in an Organized Health Care Education/Training Program; ATTEND Internal Medicine
DX: R50.9 Fever, unspecified (principal); J44.9 Chronic obstructive pulmonary disease, unspecified; R09.02 Hypoxemia; E86.9 Volume depletion, unspecified; G89.29 Other chronic pain; E66.01 Morbid (severe) obesity due to excess calories; Z68.39 Body mass index [BMI] 39.0-39.9, adult; E11.9 Type 2 diabetes mellitus without complications; S82.90XA Unspecified fracture of unspecified lower leg, initial encounter for closed fracture; I25.10 Atherosclerotic heart disease of native coronary artery without angina pectoris; K21.9 Gastro-esophageal reflux disease without esophagitis; I10 Essential (primary) hypertension; G47.33 Obstructive sleep apnea (adult) (pediatric); G43.909 Migraine, unspecified, not intractable, without status migrainosus; Z79.891 Long term (current) use of opiate analgesic; Z79.84 Long term (current) use of oral hypoglycemic drugs; Z79.51 Long term (current) use of inhaled steroids; Z87.891 Personal history of nicotine dependence; Z88.0 Allergy status to penicillin
CPT/HCPCS: 71045; 71275; 93005; 93970; 96361; 96374; 96375; 97161; 97165; 97530; 97535; 99285; G0378; G8978; G8979; G8987; G8988; G8989; J1170; J1650; J1815; J1956; J3475; J7512; Q9967

== ENCOUNTER → 2018-05-26 | Outpatient (CLI) | payer BC, OTHER | LOC: FIMAGING 15:41 | PROVIDERS: ATTEND Podiatrist Primary Podiatric Medicine | DX: L97.319 Non-pressure chronic ulcer of right ankle with unspecified severity (principal); M87.861 Other osteonecrosis, right tibia; M24.271 Disorder of ligament, right ankle; M19.071 Primary osteoarthritis, right ankle and foot | CPT/HCPCS: 82565-PO; A9585 ==

== ENCOUNTER 2018-07-06 05:46 | Day surgery (SDC) | payer BC, OTHER ==
[2018-07-06] MEDS ORDERED: LR 1,000 ML IV ONE (05:54)
[2018-07-06] MEDS ORDERED: LIDOCAINE 1% 2 ML INJ ID PRN (05:54)
--- NOTE | 2018-07-06 06:54 | PDHPUP ---
History & Physical Update H&P update statement: This history and physical update is based on an assessment of the patient which was completed after admission or registration (within 24 hours), but prior to the surgery/procedure. H&P update: H&P reviewed & patient examined, no change in patient's condition since H&P completed
[2018-07-06] MEDS ORDERED: CLINDAMYCIN 900 MG/DEXTROSE 50 ML IV ONE (06:55)
[2018-07-06] MEDS ORDERED: BACITRACIN 50,000 UNITS/10 ML SYR IRR ONE (06:58)
[2018-07-06] MEDS ORDERED: BUPIVACAINE 0.25% 30 ML SDV ONE (06:58)
[2018-07-06] MEDS ORDERED: BUPIVACAINE/EPI 0.25% 30 ML SDV ONE (06:58)
--- NOTE | 2018-07-06 07:02 | PDANEPAE ---
ANE History of Present Illness 57 year old for I&D right ankle ANE Past Medical History - Cardiovascular History Hx Hypertension: Yes Hx Arrhythmias: No Hx Chest Pain: No Hx Coronary Artery / Peripheral Vascular Disease: No Hx CHF / Valvular Disease: No Hx Palpitations: No - Pulmonary History Hx COPD: Yes Hx Asthma/Reactive Airway Disease: Yes Hx Recent Upper Respiratory Infection: Yes Hx Oxygen in Use at Home: Yes O2 in Use at Home (L/minute): 2.5L/min at night Hx Sleep Apnea: No Sleep Apnea Screening Result - Last Documented: Positive Pulmonary History Comment: Nocturnal hypoxia - Neurologic History Hx Cerebrovascular Accident: Yes Hx Seizures: No Hx Dementia: No Neurologic History Comment: TIA 08/2015 - Endocrine History Hx Diabetes: Yes Endocrine History Comment: DIAB II - Renal History Hx Renal Disorders: No - Liver History Hx Hepatic Disorders: No - Neurological & Psychiatric Hx Hx Neurological and Psychiatric Disorders: Yes Neurological / Psychiatric History Comment: DEPRESSION. peripheral neuropathy - Cancer History Hx Cancer: No - Congenital Disorder History Hx Congenital Disorders: No - GI History Hx Gastrointestinal Disorders: Yes Gastrointestinal History Comment: GERD - Other Health History Other Health History: ARTHRITIS. CHARCOT ARTHROPATHY ANDREIA. FEET. glaucoma. cataract sx. upper dentures - Chronic Pain History Chronic Pain: Yes (KNEES,FEET) - Surgical History Prior Surgeries: APPENDECTOMY. HYSTERECTOMY 1992. R TKA 2008. TONSILLECTOMY. METATARSAL ANDREIA. TARSAL TUNNEL L. WOUND REPAIR L LEG. ULNAR NERVE. broke leg feb 2017. Feb 2018 hardware removal from ankle r/t rejection ANE Review of Systems Review of Systems: - Exercise capacity METS (RN): 3 METS ANE Patient History - Allergies Allergies/Adverse Reactions: Penicillins Allergy (Verified 07/06/18 06:17) Rash - Home Medications Home medications: home medication list seen and reviewed (ICU admission post op from [facility]) Home Medications: Albuterol [Proventil Inhaler HFA (*)] 2 puffs IH BID 03/07/16 [Last Taken 04:00] Aspirin EC [Aspirin EC 81 mg (*)] 81 mg PO DAILY 03/07/16 [Last Taken 02/24/18] FLUTICASONE/SALMETEROL [ADVAIR HFA 230-21 MCG INHALER] 1 puffs IH DAILY [Last Taken 07/05/18 09:00] oxyCODONE IR [Oxycodone Ir (*)] 20 mg PO Q6 PRN 03/07/16 [Last Taken 07/05/18 20 :00] SUMAtriptan [Imitrex 50 MG (*)] 03/12/16 [Last Taken 07/05/18 09:00] DULoxetine [Cymbalta 30 MG (*)] 30 mg PO DAILY 05/12/17 [Last Taken 07/05/18 20: 00] Ipratropium/Albuterol [Duoneb (*)] 05/12/17 [Last Taken 3 Months Ago ~04/08/18] Lisinopril [Zestril 10 mg (*)] 10 mg PO DAILY 05/12/17 [Last Taken 07/05/18 09: 00] Multivitamins [Multivitamin (*)] 1 tab PO DAILY 05/12/17 [Last Taken 2 Months Ago ~05/06/18] Ranitidine HCl [Zantac] 300 mg PO DAILY 05/12/17 [Last Taken 07/05/18 20:00] predniSONE [Prednisone] 20 mg PO DAILY 05/12/17 [Last Taken 07/05/18 09:00] metFORMIN HCL [Metformin HCl] 06/05/18 [Last Taken 07/05/18 20:00] LYRICA 07/06/18 [Last Taken 07/05/18 20:00] - NPO status NPO Since - Liquids (Date): 07/05/18 NPO Since - Liquids (Time): 21:00 NPO Since - Solids (Date): 07/05/18 NPO Since - Solids (Time): 20:00 - Smoking Hx Smoking Status: Former smoker - Family Anes Hx Family Hx Anesthesia Complications: None. ANE Labs/Vital Signs - Vital Signs Blood Pressure: 137/82 Heart Rate: 102 Respiratory Rate: 13 O2 Sat (%): 93 Height: 165.1 cm Weight: 102.058 kg ANE Physical Exam - Airway Neck exam: FROM Mallampati Score: Class 2 Mouth exam: normal dental/mouth exam - Pulmonary Pulmonary: clear to auscultation - Cardiovascular Cardiovascular: regular rate and rhythym - ASA Status ASA Status: III ANE Anesthesia Plan Anesthesia Plan: MAC
[2018-07-06] MEDS ORDERED: PROPOFOL 200 MG/20 ML VIAL ONE (07:25)
[2018-07-06] MEDS ORDERED: fentaNYL 100 MCG/2 ML INJ ONE (07:25)
[2018-07-06] MEDS ORDERED: PROPOFOL/EMULSION 500 MG/50 ML BOTTLE IV ONE (07:32)
[2018-07-06] MEDS ORDERED: HYDROCODONE/APAP 5/325 TAB PO PRN (07:56)
[2018-07-06] MEDS ORDERED: NALOXONE HCL 0.4 MG/ML INJ IVP PRN (07:56)
[2018-07-06] MEDS ORDERED: ONDANSETRON 4 MG/2 ML VIAL IVP PRN (07:56)
[2018-07-06] MEDS ORDERED: PROMETHAZINE HCL 25 MG/ML INJ IVP PRN (07:56)
[2018-07-06] MEDS ORDERED: oxyCODONE IR 5 MG TAB PO PRN (07:56)
[2018-07-06] MEDS ORDERED: fentaNYL 100 MCG/2 ML INJ IVP PRN (07:56)
--- NOTE | 2018-07-06 08:15 | POSTOPPROG ---
Post Op Note Date of Operation: 07/06/18 Surgeon: Hesham Nunez Manager International: none Anesthesiologist: warm Anesthesia: IV Sedation Pre-op Diagnosis: ulcers right ankle Post-op Diagnosis: same with retained foreign bodies Indication: non healing ulcers Procedure: debridement with primary closure Findings: suture material Inf/Abcess present in the surg proc area at time of surgery?: No Depth: Deep Incisional (Fascial) EBL: Minimal Total fluids administered: 20cc 9/1 .25% marcaine plain and with epi Complications: none Bowel Protocol: No Clean Closure Performed: Yes Drains: Wound Vac
--- NOTE | 2018-07-06 08:21 | POSTANESTH ---
Post Anesthetic Evaluation Cardiovascular Status: Normal, Stable Respiratory Status: Normal, Stable Level of Consciousness/Mental Status: Can Participate in Eval Pain Control: Adequate, Prn Tx Ordered Nausea/Vomiting Control: Adequate, Prn Tx Ordered Complications Possibly Related to Anesthesia: None Noted
[2018-07-06 09:50] VITALS: BP 126/77
--- NOTE | 2018-07-07 05:33 | GOP ---
[f rep st] OPERATIVE REPORT DATE OF OPERATION: 07/06/2018 SURGEON: Hesham Nunez DPM ANESTHESIA: Local with MAC by Dr. Cruz. PREOPERATIVE DIAGNOSIS: 1. Diabetes. 2. Ulcerations, right ankle x3. POSTOPERATIVE DIAGNOSIS: 1. Diabetes. 2. Peripheral neuropathy. 3. Ulcerations, right lateral ankle x4. 4. Foreign bodies, right lateral ankle. PROCEDURE PERFORMED: 1. Excisional debridement of ulceration right lateral ankle x4. 2. Removal of foreign bodies, ulcerations x4. 3. Primary closure, ulcerations right ankle x4. FINDINGS: ESTIMATED BLOOD LOSS: Minimal. DESCRIPTION OF PROCEDURE: The patient presented to [facility], was cleared for the int ended procedure. Patient was taken to the operating room and placed on the table in supine position. IV sedation was started per the anesthesia department. Foot was anesthetized in an infiltrative ne rve block fashion. Foot was prepped, scrubbed and draped in usual sterile fashion. Following exsang uination by elevation of Esmarch bandage, pneumatic ankle tourniquet was inflated to 225 mmHg. At th is time, attention was directed to the lateral aspect of the right ankle where the obvious ulceration s were identified. Magnification of the sites showed actually 4 ulcerative areas along the previous incision line. At this time utilizing a skin marker, 2 converging semi-elliptical incisions were mad e around all 4 ulceration areas individually. Utilizing a 15 blade, the converging semi-elliptical i ncisions were then incised and carried deep utilizing sharp and blunt dissection, making sure that al l neurovascular structures were identified and retracted. At this time all superficial bleeders were cauterized. The incisions were carried down to the point where the ulcerative tissue from all 4 sit es could be dissected free and removed. Evaluation of the areas at this time showed no obvious signs of infective process. The evaluation of the ulcers though showed foreign suture material still yessi ined in the sites. Some suture material was clear with the consistency of Prolene. This was not a t ypical Vicryl stitch that had failed to dissolve. It was decided that these all needed to be removed in order to get the ulcerations to close, as I believe she is having a foreign body reaction to thes e. Great care was taken to dissect free and remove all of the suture material found in the areas. U fara completion of this, the area is flushed with copious amounts of sterile saline in all 4 ulceratio n sites. It was decided at this time that subcutaneous closure would be obtained with 5-0 Vicryl fol lowed by skin closure with 3-0 nylon. All 4 ulcerations were primarily closed, and the area was dres sed with Betadine-soaked Adaptics, 4x4s, Fernanda, and Coban. The patient was taken to recovery room, v ital signs stable, vascular supply intact to the remaining digits of the right foot. PATHOLOGY: None. HEMOSTASIS: PAT at 225 mmHg by 27 minutes. MATERIALS: None. INJECTABLES: 20 cc 9:1 ratio 0.25% Marcaine plain, 0.25% Marcaine with epinephrine preoperatively. COMPLICATIONS: None. /[id number]/MODL
== END 2018-07-06 09:50 | disposition home or self-care (01) ==
LOC: FSGY 05:46
PROVIDERS: ATTEND Podiatrist Primary Podiatric Medicine
PROC: 0JPW0JZ Removal of Synthetic Substitute from Lower Extremity Subcutaneous Tissue and Fascia, Open Approach (ICD-10-PCS; principal; 2018-07-06 07:15)
PROC: 0JBN0ZZ Excision of Right Lower Leg Subcutaneous Tissue and Fascia, Open Approach (ICD-10-PCS; principal; 2018-07-06 07:15)
DX: L97.312 Non-pressure chronic ulcer of right ankle with fat layer exposed (principal); T81.69XA Other acute reaction to foreign substance accidentally left during a procedure, initial encounter; T79.8XXA Other early complications of trauma, initial encounter; Y79.3 Surgical instruments, materials and orthopedic devices (including sutures) associated with adverse incidents; E11.42 Type 2 diabetes mellitus with diabetic polyneuropathy; M19.071 Primary osteoarthritis, right ankle and foot; M14.672 Charcot's joint, left ankle and foot; Z87.81 Personal history of (healed) traumatic fracture; Z89.421 Acquired absence of other right toe(s)
CPT/HCPCS: J2704; J3010